=== PATIENT | male | born 1985 | race Caucasian/White ===

== ENCOUNTER 2019-08-31 05:46 | Emergency (ER) | payer MEDICAID ==
[2019-08-31] MEDS ORDERED: LORazepam 2 MG/ML SDV IVPUSH STA (06:12)
[2019-08-31] MEDS ORDERED: Lactated Ringers 1,000 ML IV SCH (06:15)
[2019-08-31] MEDS ORDERED: Ondansetron 4 MG/2 ML SDV IVPUSH ONE (06:16)
--- NOTE | 2019-08-31 06:26 | EDM.PDOCBH ---
<LindaSteve A - Last Filed: 08/31/19 06:13> ED HPI GENERAL MEDICAL PROBLEM - General Chief Complaint: Drug or Alcohol Abuse Stated Complaint: RASH Time Seen by Provider: 08/31/19 05:59 Source of Information: Reports: Patient History Limitations: Reports: No Limitations - History of Present Illness INITIAL COMMENTS - FREE TEXT/NARRATIVE: Mr. Hubbard is a very pleasant 33-year-old man with a past medical history of anxiety and, according to the patient, paranoid schizophrenia, ordinarily on Seroquel 600 mg/day plus one other psychiatric medication whose name he does not recall, both prescribed by a Psychiatrist when he was discharged from a psychiatric unit in [place], [place] about a week ago. He states that he was admitted there 2 weeks ago, for suicidal ideation. He states that he is currently moving from [place] to [place] after he was asked to leave his apartment in [place] due to his lifestyle (drinking and smoking). He states that the cost of living is very high in [place], and he heard that it is much lower in [place]. The patient states that he is a binge alcoholic, typically drinking heavily for 2-3 days, then remaining sober for 3 weeks. He states that when he drinks, he may go through about half a gallon of vodka per day. He states that he has been to inpatient alcohol treatment approximately 5 times over his life, most recently in 2008, for one month. He states that he attends outpatient treatment/ counseling, most recently about 2 months ago. The patient states that he began drinking heavily 2 days ago, Saturday, 2018, following a three-week period of sobriety. He now presents the ED stating that he feels like he is withdrawing, complaining that his hands are numb, he has felt anxious, shaky, and nauseated for the past few hours. He states that he has also had a cough and shortness of breath for a few hours, and felt chilled for about one hour. Here in the ED, the patient's vital signs are completely normal, and he is afebrile. The patient does not have a PCP or Psychiatrist. - Related Data Allergies Allergy/AdvReac Type Severity Reaction Status Date / Time No Known Allergies Allergy Verified 08/31/19 05:55 Home Meds: Home Meds Ondansetron [Zofran ODT] 4 mg PO Q6H PRN #20 tab.dis 08/31/19 [Rx] QUEtiapine [SEROquel] 600 mg PO BEDTIME 08/31/19 [History] Past Medical History Psychiatric History: Reports: Anxiety, Schizophrenia (paranoid-type) Endocrine/Metabolic History: Reports: Obesity/BMI 30+ - Past Surgical History HEENT Surgical History: Reports: Naso-Sinus Surgery (deviated septum), Oral Surgery (wisdom teeth extraction), Other (See Below) (right orbit fracture repair) Social & Family History - Tobacco Use Smoking Status *Q: Current Every Day Smoker Years of Tobacco use: 20 Packs/Tins Daily: 1 - Caffeine Use Caffeine Use: Reports: Coffee, Soda - Alcohol Use Alcohol Use History: Yes Alcohol Use Frequency: Binges (x 2-3 days, followed by 3 wks of sobriety) - Recreational Drug Use Recreational Drug Use: No - Living Situation & Occupation Living situation: Reports: Single, Alone Occupation: Disabled ED ROS GENERAL - Review of Systems Review Of Systems: Comprehensive ROS is negative, except as noted in HPI. ED EXAM, BEHAVIORAL HEALTH - Physical Exam Exam: See Below Exam Limited By: No Limitations General Appearance: Alert, WD/WN, No Apparent Distress, Other (Smells of alcohol ) Eye Exam: Bilateral Eye: EOMI, Normal Inspection Ears: Normal External Exam, Hearing Grossly Normal Nose: Normal Inspection Throat/Mouth: Normal Inspection, Normal Lips, Normal Voice, No Airway Compromise Head: Atraumatic, Normocephalic Neck: Normal Inspection, Full Range of Motion Respiratory/Chest: No Respiratory Distress, Lungs Clear, Normal Breath Sounds, No Accessory Muscle Use Cardiovascular: Normal Peripheral Pulses, Regular Rate, Rhythm, No Edema, No Gallop, No JVD, No Murmur, No Rub GI/Abdominal: Normal Bowel Sounds, Soft, Non-Tender, No Organomegaly, No Distention, No Abnormal Bruit, No Mass (Male) Exam: Deferred Rectal (Males) Exam: Deferred Back Exam: Normal Inspection, Full Range of Motion, NT Extremities: Normal Inspection, Normal Range of Motion, No Pedal Edema, Normal Capillary Refill Neurological: Alert, Normal Cognition, No Motor/Sensory Deficits, Oriented x 3 Psychiatric: Normal Affect Skin Exam: Warm, Dry, Intact, Normal color, No rash COURSE, BEHAVIORAL HEALTH COMP - Course Vital Signs: Last Vital Signs Temp 97.0 F 08/31/19 05:54 Pulse 97 08/31/19 05:54 Resp 18 08/31/19 05:54 BP 138/82 08/31/19 05:54 Pulse Ox 99 08/31/19 05:54 Orders, Labs, Meds: Active Orders 24 hr Category Date Time Status Lactated Ringers [Ringers, Lactated] 1,000 ml Med 08/31/19 06:15 Active IV ASDIRECTED Medication Orders Lactated Ringer's (Ringers, Lactated) 1,000 mls @ 150 mls/hr IV ASDIRECTED GINI Last Admin: 08/31/19 06:20 Dose: 150 mls/hr Laboratory Tests 08/31/19 08/31/19 Range/Units 06:12 06:15 WBC 9.14 H (4.23-9.07) K/mm3 RBC 5.61 (4.63-6.08) M/mm3 Hgb 17.0 (13.7-17.5) gm/dl Hct 49.7 (40.1-51.0) % MCV 88.6 (79.0-92.2) fl MCH 30.3 (25.7-32.2) pg MCHC 34.2 (32.2-35.5) g/dl RDW Std Deviation 50.3 H (35.1-43.9) fL Plt Count 305 (163-337) K/mm3 MPV 10.2 (9.4-12.3) fl Neut % (Auto) 41.2 (34.0-67.9) % Lymph % (Auto) 47.4 (21.8-53.1) % Morrill % (Auto) 9.5 (5.3-12.2) % Eos % (Auto) 1.3 (0.8-7.0) Baso % (Auto) 0.4 (0.1-1.2) % Neut # (Auto) 3.76 (1.78-5.38) K/mm3 Lymph # (Auto) 4.33 H (1.32-3.57) K/mm3 Morrill # (Auto) 0.87 H (0.30-0.82) K/mm3 Eos # (Auto) 0.12 (0.04-0.54) K/mm3 Baso # (Auto) 0.04 (0.01-0.08) K/mm3 Sodium 136 (136-145) mEq/L Potassium 3.6 (3.5-5.1) mEq/L Chloride 98 (98-107) mEq/L Carbon Dioxide 19 L (21-32) mEq/L Anion Gap 22.6 H (5-15) BUN 7 (7-18) mg/dL Creatinine 1.2 (0.7-1.3) mg/dL Est Cr Clr Drug Dosing 97.10 mL/min Estimated GFR (MDRD) > 60 (>60) mL/min BUN/Creatinine Ratio 5.8 L (14-18) Glucose 122 H (74-106) mg/dL Calcium 9.5 (8.5-10.1) mg/dL Magnesium 1.8 (1.8-2.4) mg/dl Total Bilirubin 0.6 (0.2-1.0) mg/dL AST 83 H (15-37) U/L ALT 144 H (16-63) U/L Alkaline Phosphatase 62 (46-116) U/L Total Protein 8.8 H (6.4-8.2) g/dl Albumin 4.3 (3.4-5.0) g/dl Globulin 4.5 gm/dL Albumin/Globulin Ratio 1.0 (1-2) Ethyl Alcohol 0.11 (0.00) gm% Medications Generic Name Dose Route Start Last Admin Trade Name Freq PRN Reason Stop Dose Admin Lactated Ringer's 1,000 mls @ 150 mls/hr 08/31/19 06:15 08/31/19 06:20 Ringers, Lactated IV 150 mls/hr ASDIRECTED GINI Administration Discontinued Medications Generic Name Dose Route Start Last Admin Trade Name Freq PRN Reason Stop Dose Admin Lorazepam 1 mg 08/31/19 06:12 08/31/19 06:20 Ativan IVPUSH 08/31/19 06:13 1 mg ONETIME STA Administration Ondansetron HCl 4 mg 08/31/19 06:16 08/31/19 06:20 Zofran IVPUSH 08/31/19 06:17 4 mg ONETIME ONE Administration Medical Clearance: 08/31/19 06:13 While the patient states that he is withdrawing from alcohol, he is in fact showing no signs of acute alcohol withdrawal, and is at zero risk for the development of significant alcohol withdrawal symptoms, since he is a binge alcoholic, and sober for 3 weeks up until 2 days ago. He smells of alcohol, but is clinically sober - he answers questions appropriately, and is not slurring his words. His symptoms appear to be due to anxiety, made worse because he has not taken his usual psychiatric medications since Saturday. For today's purposes, I have ordered some blood work to make sure that he has not suffered any significant electrolyte abnormalities, and an alcohol level, in order to be able to gauge how long he will need to be here until he is safe to discharge. In the meantime, the patient will receive IV fluid, IV Zofran, and some IV Ativan, just to help calm his anxiety. We will get him some breakfast once the cafeteria opens. 08/31/19 07:[address] Ortiz, and care of the patient turned over to him at this time, for change of shift. Departure - Departure Disposition: Home, Self-Care 01 Clinical Impression: Alcohol abuse Alcohol intoxication Qualifiers: Complication of substance-induced condition: uncomplicated Qualified Code(s): F10.920 - Alcohol use, unspecified with intoxication, uncomplicated - Discharge Information Prescriptions: Ondansetron [Zofran ODT] 4 mg PO Q6H PRN #20 tab.dis PRN Reason: Nausea\vomiting Referrals: PCP,Not In Area [Primary Care Provider] - Additional Instructions: Take the seroquel as prescribed. Drink plenty of fluids. Take the zofran as needed for nausea and vomiting. Please return if you are worse. <Eric Ortiz - Last Filed: 08/31/19 08:33> COURSE, BEHAVIORAL HEALTH COMP - Course Medical Clearance: 08/31/19 07:[address] Mckeon. The patient's WBC is slightly elevated at 9.14. His anion gap is elevated at 22.6. His glucose is 122. His AST is elevated at 83. His ALT is elevated at 144. His ETOH is still elevated at 0.11. 08/31/19 08:30 I will get him something to eat and a prescription for zofran. Departure - Departure Time of Disposition: 08:40 Condition: Good - Discharge Information *PRESCRIPTION DRUG MONITORING PROGRAM REVIEWED*: No *COPY OF PRESCRIPTION DRUG MONITORING REPORT IN PATIENT [place]: No
== END 2019-08-31 09:37 | disposition home or self-care (01) ==
LOC: JD.ED 05:46
DX: F10.129 Alcohol abuse with intoxication, unspecified (principal); F17.210 Nicotine dependence, cigarettes, uncomplicated
CPT/HCPCS: 36415; 80053; 80320; 83735; 85025; 96361; 96374; 96375; 99284; J2060; J2405; J7120; G0480